=== PATIENT | female | born 1995 | race Caucasian/White ===

== ENCOUNTER 2016-10-14 10:26 | Outpatient (CLI) | payer OTHER | END 2016-10-14 11:59 | disposition home or self-care (01) | LOC: FBPOP 10:26 | PROVIDERS: ATTEND Obstetrics & Gynecology | DX: M54.5 Low back pain (principal); R10.2 Pelvic and perineal pain; O47.1 False labor at or after 37 completed weeks of gestation; Z3A.39 39 weeks gestation of pregnancy | CPT/HCPCS: 99213 ==

== ENCOUNTER 2016-10-14 19:38 | Outpatient (CLI) | payer OTHER | END 2016-10-14 20:54 | disposition home or self-care (01) | LOC: FBPOP 19:38 | PROVIDERS: ATTEND Obstetrics & Gynecology | DX: O62.2 Other uterine inertia (principal); Z3A.39 39 weeks gestation of pregnancy | CPT/HCPCS: 59025; G0463; 99213 ==

== ENCOUNTER 2016-10-15 09:14 | Inpatient (IN) | payer OTHER ==
[2016-10-15] MEDS ORDERED: CARBOPROST TROMETHAMINE 250 MCG/ML 1 ML AMP IM PRN (09:32)
[2016-10-15] MEDS ORDERED: OXYTOCIN 10 UNIT/ML 1 ML VIAL IM PRN (09:32)
[2016-10-15] MEDS ORDERED: TERBUTALINE 1 MG/ML VIAL SQ PRN (09:32)
[2016-10-15] MEDS ORDERED: METHYLERGONOVINE 0.2 MG/ML 1 ML AMP IM PRN (09:32)
[2016-10-15] MEDS ORDERED: LIDOCAINE 1% (PF) 10 MG/ML (30 ML SDV) SQ PRN (09:32)
[2016-10-15] MEDS ORDERED: OXYTOCIN 30 UNITS/500 ML NS 30 UNIT in SALINE 1 500ML.BAG IV SCH (09:45)
[2016-10-15] MEDS: LACTATED RINGERS 1,000 ML IV SCH ×2 (09:49→14:03)
[2016-10-15 09:54] LABS: Basophils % (A) 0 %; CH 29.4; CHCM 34.1; Eosinophils # (A) 0.1 k/uL (0-0.7); Eosinophils % (A) 1 %; HCT 37.4 % (34.0-46.0); HDW 2.82; HGB 12.1 gm/dL (11.4-16.0); Luc # (Auto) 0.08; Luc % (Auto) 1; Lymphocytes # (A) 2.2 k/uL (1.0-4.8); Lymphocytes % (A) 14 %; MCH 28.1 pg (25.0-35.0); MCHC 32.4 g/dL (31.0-37.0); MCV 86.8 fL (80.0-100.0); Mean Platelet Volume 9.8; Monocytes # (A) 0.4 k/uL (0-1.0); Monocytes % (A) 3 %; Neutrophils # (A) 12.9 k/uL (1.3-7.7); Neutrophils % (A) 83 %; RBC 4.31 m/uL (3.80-5.40); WBC 15.6 k/uL (3.8-10.6); WBC (Perox) 15.33
[2016-10-15] MEDS ORDERED: BUTORPHANOL 1 MG/ML 1 ML VIAL IV PRN (10:51)
[2016-10-15 11:00] VITALS: BMI 41.6
--- NOTE | 2016-10-15 12:27 | P.HPOB ---
History of Present Illness H&P Date: 10/15/16 Chief Complaint: Labor at 40-0/7 weeks This is a 21-year-old 1 para 0 woman with an estimated due date of 10/15 based on first trimester ultrasound who presents complaining of worsening contractions over the last 48 hours. She was seen on labor and delivery triage throughout the night and was 1 cm dilated. When she was reevaluated in the office setting this morning she was 3 cm and more effaced. Her blood pressure was 140/100. She was therefore admitted for early active labor and - induced hypertension. She did have preeclampsia labs and a 24-hour urine drawn 48 hours ago. Her labs were normal however the 24-hour urine protein is not yet available through the [facility] lab. She had trace protein on urine dip in the office today. She denies headaches or visual changes. The otherwise was complicated by maternal obesity. Laboratory data: Group B strep negative, blood type O positive, antibody screen negative, rubella immune, VDRL nonreactive, hepatitis B surface antigen negative , HIV negative, diabetes screening within normal limits. Estimated weight by ultrasound at 37 weeks was 59th percentile. Review of Systems All systems: negative Past Medical History Past Medical History: No Reported History History of Any Multi-Drug Resistant Organisms: None Reported Past Surgical History: No Surgical Hx Reported Past Anesthesia/Blood Transfusion Reactions: No Reported Reaction Past Psychological History: Anxiety Smoking Status: Never smoker Past Drug Use History: None Reported - Past Family History Mother Family Medical History: No Reported History Medications and Allergies Home Medications Medication Instructions Recorded Confirmed Type Pnv with Ca,No.72/Iron/FA 1 each PO DAILY 09/23/16 10/15/16 History [ Plus Tablet] Cephalexin [Keflex] 500 mg PO Q8HR 10/14/16 10/15/16 History Allergies Allergy/AdvReac Type Severity Reaction Status Date / Time No Known Allergies Allergy Verified 10/15/16 09:31 Exam - Vital Signs Vital signs: Vital Signs Temp Pulse Resp BP Pulse Ox 10/15/16 10:55 96.4 F L 85 16 130/84 98 Intake and Output 10/14/16 10/15/16 10/15/16 22:59 06:59 14:59 Other: Weight 106.594 kg Patient Weight 10/16/16 06:59 Weight 106.594 kg Targeted physical exam is performed. This is a morbidly obese and visibly gravid young female. There is no right upper quadrant pain. She has 1+ bilateral lower extremity edema. 1+ deep tendon reflexes and no clonus. On pelvic exam the cervix is 4 cm dilated 100% effaced with bulging membranes. Vertex -2 station. Artificial rupture of membranes is undertaken and clear fluid is noted. heart tones are reassuring by external monitoring and she is latrice every 1-2 minutes. Results Result Diagrams: 10/15/16 09:30 Abnormal Lab Results - Last 24 Hours (Table) 10/15/16 Range/Units 09:30 WBC 15.6 H (3.8-10.6) k/uL Neutrophils # 12.9 H (1.3-7.7) k/uL Assessment and Plan (1) 40 weeks gestation of Status: Acute (2) induced hypertension Status: Acute (3) Spontaneous onset of labor Status: Acute (4) Obesity Status: Acute Plan: This is a 21-year-old 1 para 0 woman admitted in spontaneous active labor at 40-0/7 weeks' gestation with regnancy-induced hypertension. No signs of preeclampsia. Blood pressures are stable on admission. status is reassuring by external monitoring. She is group B strep negative and Rh+ . She may have an epidural anesthetic upon request. Anticipate normal spontaneous vaginal delivery.
[2016-10-15] MEDS ORDERED: SODIUM CHLORIDE 0.9% 100 ML BAG ONE (13:45)
[2016-10-15] MEDS ORDERED: BUPIVACAINE (PF) 0.25% 30 ML VIAL ONE (13:45)
[2016-10-15] MEDS ORDERED: fentaNYL (PF) 50 MCG/ML 5 ML AMP ONE (13:45)
[2016-10-15] MEDS ORDERED: BUPIVACAINE (PF) 0.25% 25 ML, fentaNYL (PF) 200 MCG in SODIUM CHLORIDE 0.9% 71 ML EPIDURAL ONE (14:18)
[2016-10-15] MEDS ORDERED: ACETAMINOPHEN TAB 325 MG TAB PO PRN (19:55)
[2016-10-15] MEDS ORDERED: HYDROCORTISONE 2.5% RECTAL CREAM 30 GM TUBE RECTAL PRN (19:55)
[2016-10-15] MEDS ORDERED: ZOLPIDEM 5 MG TAB PO PRN (19:55)
[2016-10-15] MEDS ORDERED: diphenhydrAMINE 25 MG CAP PO PRN (19:55)
[2016-10-15] MEDS ORDERED: WITCH HAZEL 1 EACH MED..PAD TOPICAL PRN (19:55)
[2016-10-15] MEDS ORDERED: SIMETHICONE 80 MG CHEWABLE PO PRN (19:55)
[2016-10-15] MEDS ORDERED: LANOLIN CREAM 5 GM TUBE TOPICAL PRN (19:55)
[2016-10-15] MEDS ORDERED: Acetaminophen-Codeine 300-30mg TAB PO PRN (19:55)
[2016-10-15] MEDS ORDERED: diphenhydrAMINE 50 MG/ML 1 ML VIAL IVP PRN ×2 (19:55)
[2016-10-15] MEDS ORDERED: diphenhydrAMINE 50 MG CAP PO PRN (19:55)
[2016-10-15] MEDS ORDERED: BENZOCAINE/MENTHOL SPRAY 1 GM/SPRAY AEROSOL TOPICAL PRN (19:55)
--- NOTE | 2016-10-15 19:55 | P.PROBDLV ---
Vaginal Delivery Note - . Vaginal Delivery Note: This is a 21-year-old white female 1 para 0 EDC 10/15/2016 at 40 weeks gestation. Patient was admitted earlier this morning by Dr. Matos, in very early spontaneous labor. Blood pressure in the office with slightly elevated, 131/80 foreign admission and normotensive since admission. Blood type O+, group B strep cultures negative, rubella status immune. Please see dictated history and physical for details. Artificial amniorrhexis revealed clear fluid. Oxytocin was started and titrated per hospital protocol. Epidural was placed per her request. She became completely dilated and began the second stage of labor. Several episodes of variable type decelerations, excellent overall variability. Perineal body was ultimately prepped and draped in the usual sterile fashion. Infant's head delivered occiput anterior and he restituted accordingly. There was a nuchal cord 1 that was reduced on the perineal body. The oropharynx, nasopharynx and external nares were all bulb suctioned on the perineal body. The left or anterior shoulder was gently delivered from underneath the pubic symphysis. Patient was officially delivered of a liveborn male infant at 1929 hrs. The umbilical cord was doubly clamped and ligated, he was handed to waiting nurses for evaluation where scores of 9 and 9 at one and 5 minutes respectively were given. Placenta delivered spontaneously, it was inspected, noted to be intact with trivascular cord. Fundus was firm and in the midline, symmetric and 18 week size upon completion of delivery. The perineum was redraped, inspection of the cervix, vagina, perineum, periurethral, and perirectal areas revealed a small posterior vaginal vault laceration, second-degree, easily repaired using 3-0 Vicryl suture. Estimated blood loss 300 mL's. All sponge needle and enhancement counts are correct at the end of the procedure. Patient and her family are requesting circumcision further infant son.
[2016-10-15] MEDS: SENNOSIDES-DOCUSATE SODIUM 1 EACH TAB PO SCH (20:02)
[2016-10-15] MEDS: IBUPROFEN 600 MG TAB PO PRN (20:02)
[2016-10-15] MEDS: OXYTOCIN 30 UNITS/500 ML NS 30 UNIT in SALINE 1 500ML.BAG IV SCH (20:34)
[2016-10-16] MEDS: LACTATED RINGERS 1,000 ML IV SCH (02:15)
[2016-10-16] MEDS: OXYTOCIN 30 UNITS/500 ML NS 30 UNIT in SALINE 1 500ML.BAG IV SCH (02:15)
--- NOTE | 2016-10-16 08:37 | P.PN ---
Subjective Principal diagnosis: day #1 Slept well. Minimal lochia rubra. Pain well-controlled. Positive flatus. Objective - Vital Signs Vital signs: Vital Signs Temp 98.5 F 10/16/16 04:00 Pulse 97 10/16/16 04:00 Resp 16 10/16/16 04:00 BP 108/68 10/16/16 04:00 Pulse Ox 98 10/15/16 10:55 Intake & Output 10/15/16 10/16/16 10/16/16 18:59 06:59 18:59 Weight 106.594 kg Other: # Voids 1 1 - Constitutional General appearance: Present: average body habitus - EENT Eyes: Present: PERRLA - Neck Neck: Present: normal ROM Thyroid: bilateral: normal size - Respiratory Respiratory: bilateral: CTA - Cardiovascular Rhythm: regular - Gastrointestinal General gastrointestinal: Present: normal bowel sounds - Genitourinary Genitourinary Comment(s): Fundus firm, midline, symmetric, 18 week size. Minimal lochia rubra. - Integumentary Integumentary: Present: normal - Neurologic Neurologic: Present: CNII-XII intact - Musculoskeletal Musculoskeletal: Present: gait normal, strength equal bilaterally - Psychiatric Psychiatric: Present: A&O x's 3, appropriate affect, intact judgment & insight - Labs CBC & Chem 7: 10/15/16 09:30 Labs: Abnormal Lab Results - Last 24 Hours (Table) 10/15/16 Range/Units 09:30 WBC 15.6 H (3.8-10.6) k/uL Neutrophils # 12.9 H (1.3-7.7) k/uL Assessment and Plan Plan: Continue care. Likely discharge home tomorrow. Time with Patient: Less than 30
[2016-10-16] MEDS: SENNOSIDES-DOCUSATE SODIUM 1 EACH TAB PO SCH ×2 (14:21→15:47)
[2016-10-16] MEDS: IBUPROFEN 600 MG TAB PO PRN (21:23)
[2016-10-17 08:19] VITALS: BP 136/83; PULSE 76; RESP 18; TEMP 98.3
--- NOTE | 2016-10-17 08:27 | P.DS ---
Providers Date of admission: 10/15/16 09:14 Expected date of discharge: 10/17/16 Attending physician: Carol Matos Primary care physician: Carol Matos - Discharge Diagnosis(es) (1) 40 weeks gestation of Current Visit: Yes Status: Acute (2) induced hypertension Current Visit: Yes Status: Acute (3) Spontaneous onset of labor Current Visit: Yes Status: Acute (4) Obesity Current Visit: Yes Status: Acute (5) Normal spontaneous vaginal delivery Current Visit: Yes Status: Acute Hospital Course: This is a 21-year-old 1 now para 1 woman who is admitted at 40 weeks gestation in early labor. She had -induced hypertension. Following admission she underwent artificial rupture of membranes and Pitocin augmentation of labor. She received an epidural anesthetic. She went on to deliver a liveborn male infant with Apgars of 9 at 1 minute and 9 at 5 minutes. Please see the delivery summary for details. The patient's post course was unremarkable. Her blood pressures remained stable in the 130s over 80s throughout. She did have significant lower extremity edema however no other localizing signs or symptoms. By day #2 she was doing very well with minimal lochia minimal pain and no other complications. She was therefore discharged home with routine instructions for care and follow-up. Patient Condition at Discharge: Good Plan - Discharge Summary Discharge Medication List Pnv with Ca,No.72/Iron/FA [ Plus Tablet] 1 each PO DAILY 09/23/16 [ History] Cephalexin [Keflex] 500 mg PO Q8HR 10/14/16 [History]
== END 2016-10-17 14:15 | disposition home or self-care (01) | DRG 775 ==
LOC: 4FBP 09:14
PROVIDERS: ADMIT Obstetrics & Gynecology; ATTEND Obstetrics & Gynecology
PROC: 0KQM0ZZ Repair Perineum Muscle, Open Approach (ICD-10-PCS; principal; 2016-10-15)
PROC: 10907ZC Drainage of Amniotic Fluid, Therapeutic from Products of Conception, Via Natural or Artificial Opening (ICD-10-PCS; principal; 2016-10-15)
PROC: 10E0XZZ Delivery of Products of Conception, External Approach (ICD-10-PCS; principal; 2016-10-15)
DX: O13.4 Gestational [pregnancy-induced] hypertension without significant proteinuria, complicating childbirth (principal); E66.9 Obesity, unspecified; Z37.0 Single live birth; O99.214 Obesity complicating childbirth; O69.81X0 Labor and delivery complicated by cord around neck, without compression, not applicable or unspecified; Z3A.40 40 weeks gestation of pregnancy; O70.1 Second degree perineal laceration during delivery
CPT/HCPCS: 85025; 88307

== ENCOUNTER → 2017-12-20 | Outpatient (CLI) | payer OTHER ==
--- NOTE | 2017-12-20 13:01 | MR ---
EXAMINATION TYPE: MR tspine/lspine wo con DATE OF EXAM: 12/20/2017 COMPARISON: NONE HISTORY: Back pain TECHNIQUE: Multiplanar, multisequence imaging of the thoracic and lumbar spine were performed without IV contrast. FINDINGS: THORACIC SPINE: Thoracic vertebral body heights and alignment to appear satisfactory. Disc desiccatio n is seen at T9-T10, T11-T12, and T12-L1. The remaining intervertebral discs demonstrate normal heigh ts and hydration. The conus medullaris is normal in position and signal located at T12-L1. The bone marrow signal intensity is within normal limits other than a small T1/T2 hyperintense vertebral body hemangioma of T8. No suspicious extra dural fluid collection is seen. There is a subligamentous central small disc herniation at T11-T12 superimposed upon a broad-based di sc bulge resulting in very mild bilateral neural foraminal narrowing and mild spinal canal stenosis. The remaining thoracic vertebral levels demonstrate no focal disc herniation, neural foraminal narrow ing or spinal canal stenosis. Questionable 7 mm T2 hyperintense hepatic dome lesion within the right lobe of the liver is seen on a single image only on T2 axial nonfat sat series 601 image 18. This co uld be further evaluated with ultrasound. LUMBAR SPINE: The lumbar spine maintains normal vertebral body height and alignment. Bone marrow sign al is within normal limits other than small sacral intervertebral hemangiomas. Disc desiccation is se en at T12-L1, mildly at L1-L2 with a small Schmorl's node of the superior endplate of L1, and mildly at L4-L5 and L5-S1. Conus medullaris is unremarkable terminating at T12-L1. Artifact is seen within t he right kidney, hyperintense on T1 and T2-weighted images. L1-L2: Mild disc desiccation with a small superior L1 endplate Schmorl's node. No focal disc herniati on, neural foraminal stenosis or spinal canal stenosis. L2-L4: No significant disc disease, spinal canal stenosis or neural foraminal narrowing. L4-L5: Very small broad-based disc bulge is seen as flattening of the usual disc concavity posteriorl y. No significant spinal canal stenosis or neural foraminal narrowing. L5-S1: Very small central disc protrusion/herniation as seen on axial T1 and T2 nonfat sat image 3. T here is no significant spinal canal stenosis or neural foraminal narrowing. IMPRESSION: 1. Subligamentous small disc herniation at T11-T12 creating very mild bilateral neural foraminal narr owing and mild spinal canal stenosis. 2. Very small central disc herniation at L5-S1 without significant spinal canal stenosis or neural fo raminal narrowing. 3. Questionable 7 mm T2 hyperintense right hepatic lobe lesion near the dome of the diaphragm seen on a single image only that could be further evaluated with ultrasound. 4. No evidence of malalignment, bone marrow edema, or acute fracture of the thoracic or lumbar spine.
== END ==
LOC: RADMRIMAIN 11:38
PROVIDERS: ATTEND Pediatrics
DX: M48.04 Spinal stenosis, thoracic region (principal); M99.72 Connective tissue and disc stenosis of intervertebral foramina of thoracic region; M51.24 Other intervertebral disc displacement, thoracic region; M51.27 Other intervertebral disc displacement, lumbosacral region
CPT/HCPCS: 72146; 72148

== ENCOUNTER → 2019-07-23 | Outpatient (CLI) | payer OTHER ==
[2019-07-23 15:26] LABS: Basophils # (A) 0.1 k/uL (0-0.2); Basophils % (A) 1 %; Eosinophils # (A) 0.1 k/uL (0-0.7); Eosinophils % (A) 1 %; HCT 38.7 % (34.0-46.0); HGB 12.6 gm/dL (11.4-16.0); Lymphocytes # (A) 3.3 k/uL (1.0-4.8); Lymphocytes % (A) 32 %; MCHC 32.5 g/dL (31.0-37.0); MCV 89.4 fL (80.0-100.0); Monocytes # (A) 0.3 k/uL (0-1.0); Monocytes % (A) 3 %; Neutrophils # (A) 6.7 k/uL (1.3-7.7); Neutrophils % (A) 63 %; Platelet Count 292 k/uL (150-450); RBC 4.33 m/uL (3.80-5.40); RDW 13.2 % (11.5-15.5); WBC 10.6 k/uL (3.8-10.6)
== END | disposition home or self-care (01) ==
LOC: LABPAT 14:01
PROVIDERS: ATTEND Obstetrics & Gynecology
DX: Z01.812 Encounter for preprocedural laboratory examination (principal); O03.9 Complete or unspecified spontaneous abortion without complication
CPT/HCPCS: 36415; 85025

== ENCOUNTER 2019-07-24 09:42 | Day surgery (SDC) | payer OTHER ==
[2019-07-23 11:50] VITALS: BMI 43.2
[~2019-07-24 09:42] MED LIST: DEXAMETHASONE SOD PHOSPHATE 10 MG/ML 1 ML VIAL IV ONE; HYDROmorphone 0.5 MG/0.5 ML SYRINGE IVP PRN; LACTATED RINGERS 1,000 ML IV SCH; LIDOCAINE 1% 20 ML VIAL (10MG/ML) FOR IV START INTRADERMA PRN; MIDAZOLAM 2 MG/2 ML VIAL IV PRN; ONDANSETRON 4 MG/2 ML VIAL IVP ONE; Pre Op ABX Message 1 EACH MISC MISCELLANE ONE; SCOPOLAMINE 1.5MG/72HR PATCH TRANSDERM ONE
[2019-07-24 10:05] VITALS: RESP 16
[2019-07-24] MEDS ORDERED: MIDAZOLAM 2 MG/2 ML VIAL ONE (11:15)
[2019-07-24] MEDS ORDERED: LIDOCAINE 1% INJ 10MG/ML (20 ML MDV) ONE (11:15)
[2019-07-24] MEDS ORDERED: PROPOFOL 10 MG/ML 20 ML VIAL IV ONE (11:15)
[2019-07-24] MEDS ORDERED: KETOROLAC 30 MG/ML 1 ML VIAL ONE (11:15)
[2019-07-24] MEDS ORDERED: fentaNYL (PF) 50 MCG/ML 2 ML AMP ONE (11:15)
[2019-07-24] MEDS ORDERED: METOCLOPRAMIDE 5 MG/ML 2 ML VIAL IVP PRN (11:41)
[2019-07-24] MEDS ORDERED: Acetaminophen-Codeine 300-30mg TAB PO PRN ×2 (11:41)
[2019-07-24] MEDS ORDERED: IBUPROFEN 600 MG TAB PO PRN (11:41)
[2019-07-24] MEDS ORDERED: KETOROLAC 30 MG/ML 1 ML VIAL IVP PRN (11:41)
[2019-07-24] MEDS ORDERED: SIMETHICONE 80 MG CHEWABLE PO PRN (11:41)
[2019-07-24] MEDS ORDERED: diphenhydrAMINE 50 MG/ML 1 ML VIAL IVP PRN (11:41)
[2019-07-24] MEDS ORDERED: ONDANSETRON 4 MG/2 ML VIAL IVP PRN (11:41)
[2019-07-24] MEDS ORDERED: LACTATED RINGERS 1,000 ML IV SCH (11:45)
--- NOTE | 2019-07-24 11:46 | P.OP ---
Date of Procedure: 07/24/19 Preoperative Diagnosis: #1. 9+ week missed Postoperative Diagnosis: Same Procedure(s) Performed: #1. Dilation and aspiration curettage Anesthesia: other (Gen. by facemask) Surgeon: Robin Blair Estimated Blood Loss (ml): 150 IV fluids (ml): 400 Urine output (ml): 60 Pathology: other (Intrauterine contents) Condition: stable Disposition: PACU Operative Findings: Preoperative pelvic examination demonstrated a roughly 9 week midplane to slightly retroverted normal shaped uterus with normal adnexa bilaterally. Intraoperatively, the uterus sounded to approximately 11 cm. A #9 curved aspiration curet was utilized and tissue was clearly seen passing through the tubing on the first 2 passes. The typical gritty texture was encountered throughout with a sharp curette at the end. Description of Procedure: The patient was prepped and draped in usual fashion after general anesthesia was administered by the anesthesiologist. A weighted speculum was placed and the bladder drained of approximately 60 mL of clear michela urine. The anterior lip of the cervix was grasped with a single-tooth tenaculum and uterus was sounded to approximately 11 cm. Serial dilation was carried out to admit a #9 curved aspiration curet which was placed to the fundus and suction applied. After adequate suction had been built, thorough and circumferential suction curettage was carried out from the fundus to the cervix with tissue clearly seen passing through the tubing a second pass was made at which time tissue was again seen passing through the tubing. On the third pass, no further tissue was noted. The aspiration curet was replaced with a medium sharp curette which was once again used to thoroughly and circumferentially curet the entire endometrial cavity with no further tissue noted by sharp curettage. One last pass was made with the aspiration curet in the procedure abandoned. All instrumentation was removed. There is no significant ongoing bleeding either from the cervix or from the tenaculum site. Estimated blood loss for the entire case was approximately 150 mL. There were no complications. All sponge, instrument, and needle counts were correct. The patient tolerated the procedure well and proceeded to the recovery room in stable condition.
[2019-07-24 11:55] VITALS: TEMP 97.8
[2019-07-24] MEDS ORDERED: LACTATED RINGERS 1,000 ML IV ONE (12:22)
[2019-07-24 13:28] VITALS: BP 106/66; PULSE 79
== END 2019-07-24 13:57 | disposition home or self-care (01) ==
LOC: OR 09:42 → MERGE 11:00 → OR 13:57
PROVIDERS: ATTEND Obstetrics & Gynecology
DX: O02.1 Missed abortion (principal); F41.9 Anxiety disorder, unspecified; F32.9 Major depressive disorder, single episode, unspecified; K58.9 Irritable bowel syndrome, unspecified; G43.909 Migraine, unspecified, not intractable, without status migrainosus; E66.9 Obesity, unspecified; Z98.890 Other specified postprocedural states; Z79.899 Other long term (current) drug therapy
CPT/HCPCS: 88305; 59820; J2250; J1100; J2405; J2001; J3010; J1885; J2704; 86850; 86900; 86901

== ENCOUNTER 2019-07-30 01:44 | Emergency (ER) | payer OTHER ==
[2019-07-30 02:03] VITALS: RESP 18
[2019-07-30] MEDS ORDERED: SODIUM CHLORIDE 0.9% 1,000 ML IV STA (02:12)
[2019-07-30 02:39] LABS: Basophils % (A) 0 %; Eosinophils # (A) 0.2 k/uL (0-0.7); Eosinophils % (A) 2 %; HCT 36.2 % (34.0-46.0); HGB 12.3 gm/dL (11.4-16.0); Lymphocytes # (A) 4.1 k/uL (1.0-4.8); Lymphocytes % (A) 37 %; MCH 29.9 pg (25.0-35.0); MCV 87.9 fL (80.0-100.0); Mean Platelet Volume 6.1; Monocytes # (A) 0.4 k/uL (0-1.0); Monocytes % (A) 4 %; Neutrophils # (A) 6.1 k/uL (1.3-7.7); Neutrophils % (A) 55 %; Platelet Count 307 k/uL (150-450); RBC 4.12 m/uL (3.80-5.40)
--- NOTE | 2019-07-30 02:41 | ED ---
General Adult HPI - General Chief complaint: Vaginal Bleeding Stated complaint: Vaginal Bleeding, Abdominal Pain Time Seen by Provider: 07/30/19 01:56 Source: patient, RN notes reviewed Mode of arrival: ambulatory Limitations: no limitations - History of Present Illness Initial comments: 23-year-old female with a past medical history of IBS, migraines presents to the emergency department for a chief complaint of vaginal bleeding. Patient is a female. Patient was about 11 weeks when she miscarried. Patient had a D&C performed 6 days ago for missed . Patient states that since that time she has had vaginal bleeding. States it has been worsening and now she is passing clots. States she is also having sharp lower abdominal pain that is intermittent in nature and comes and goes. States that tonight patient passed a clot that was the size of an egg and became concerned.Patient has no other complaints at this time including shortness of breath, chest pain, nausea or vomiting, headache, or visual changes. - Related Data Home Medications Medication Instructions Recorded Confirmed Acetaminophen Tab [Tylenol Tab] 650 mg PO Q6H PRN 07/23/19 07/24/19 Pnv No.95/Ferrous Fum/Folic AC 1 each PO DAILY 07/23/19 07/24/19 [ Multivitamin Tablet] Sertraline [Zoloft] 50 mg PO HS 07/23/19 07/24/19 Allergies Allergy/AdvReac Type Severity Reaction Status Date / Time No Known Allergies Allergy Verified 07/30/19 02:03 Review of Systems ROS Statement: Those systems with pertinent positive or pertinent negative responses have been documented in the HPI. ROS Other: All systems not noted in ROS Statement are negative. Past Medical History Past Medical History: No Reported History Additional Past Medical History / Comment(s): PAST HX OF IBS AND MIGRAINES., LMP MAY 02 2019- STATES MISCARRIAGE-DENIES PAIN OR SPOTTING. History of Any Multi-Drug Resistant Organisms: None Reported Past Surgical History: No Surgical Hx Reported Additional Past Surgical History / Comment(s): COLONOSCOPY (2014) Past Anesthesia/Blood Transfusion Reactions: No Reported Reaction, Motion Sickness Past Psychological History: Anxiety, Depression Smoking Status: Never smoker Past Alcohol Use History: None Reported Past Drug Use History: None Reported - Past Family History Mother Family Medical History: No Reported History General Exam Limitations: no limitations General appearance: alert, in no apparent distress Head exam: Present: atraumatic, normocephalic, normal inspection Eye exam: Present: normal appearance, PERRL, EOMI. Absent: scleral icterus, conjunctival injection, periorbital swelling ENT exam: Present: normal exam Neck exam: Present: normal inspection, full ROM. Absent: tenderness, men ingismus, lymphadenopathy Respiratory exam: Present: normal lung sounds bilaterally. Absent: respiratory distress, wheezes, rales, rhonchi, stridor Cardiovascular Exam: Present: regular rate, normal rhythm, normal heart sounds. Absent: systolic murmur, diastolic murmur, rubs, gallop, clicks GI/Abdominal exam: Present: soft, tenderness (Mild tenderness noted in the lower abdomen.), normal bowel sounds. Absent: distended, guarding, rebound, rigid External exam: Present: normal external exam. Absent: erythema, swelling, lesions, lacerations, ecchymosis Speculum exam: Present: vaginal bleeding (mild ). Absent: normal speculum exam, erythema, vaginal discharge, cervical discharge, foreign body, tissue, laceration By manual exam: Present: uterine tenderness (mild). Absent: normal by manual exam, cervical motion tenderness, adnexal tenderness, adnexal mass, uterine enlargement Course Vital Signs 07/30/19 07/30/19 02:00 03:12 Temperature 97.9 F Pulse Rate 96 80 Respiratory 18 18 Rate Blood Pressure 130/87 122/76 O2 Sat by Pulse 98 98 Oximetry Medical Decision Making - Medical Decision Making Vitals are stable. Pelvic exam revealed mild bleeding. CBC is unremarkable. Mild leukocytosis of 11 is likely reactive. Hemoglobin is stable at 12.3. CMP is unremarkable. Urinalysis shows greater than 182 red blood cells which is likely secondary to vaginal bleeding rather than hematuria. Ultrasound was obtained which was a small left ovarian cyst. No evidence of ovarian torsion. Normal uterus. At this time as vitals are stable, hemoglobin is stable patient can follow up outpatient with her [facility]. Recommended she call tomorrow morning. Recommended she return here she has any worsening symptoms. - Lab Data Result diagrams: 07/30/19 02:30 07/30/19 02:30 Lab Results 07/30/19 07/30/19 07/30/19 Range/Units 02:30 02:30 02:30 WBC 11.0 H (3.8-10.6) k/uL RBC 4.12 (3.80-5.40) m/uL Hgb 12.3 (11.4-16.0) gm/dL Hct 36.2 (34.0-46.0) % MCV 87.9 (80.0-100.0) fL MCH 29.9 (25.0-35.0) pg MCHC 34.0 (31.0-37.0) g/dL RDW 13.0 (11.5-15.5) % Plt Count 307 (150-450) k/uL Neutrophils % 55 % Lymphocytes % 37 % Monocytes % 4 % Eosinophils % 2 % Basophils % 0 % Neutrophils # 6.1 (1.3-7.7) k/uL Lymphocytes # 4.1 (1.0-4.8) k/uL Monocytes # 0.4 (0-1.0) k/uL Eosinophils # 0.2 (0-0.7) k/uL Basophils # 0.0 (0-0.2) k/uL Sodium 138 (137-145) mmol/L Potassium 4.0 (3.5-5.1) mmol/L Chloride 104 (98-107) mmol/L Carbon Dioxide 25 (22-30) mmol/L Anion Gap 9 mmol/L BUN 16 (7-17) mg/dL Creatinine 0.75 (0.52-1.04) mg/dL Est GFR (CKD-EPI)AfAm >90 (>60 ml/min/1.73 sqM) Est GFR (CKD-EPI)NonAf >90 (>60 ml/min/1.73 sqM) Glucose 100 H (74-99) mg/dL Calcium 10.0 (8.4-10.2) mg/dL Total Bilirubin 0.3 (0.2-1.3) mg/dL AST 19 (14-36) U/L ALT 21 (9-52) U/L Alkaline Phosphatase 104 (38-126) U/L Total Protein 7.6 (6.3-8.2) g/dL Albumin 4.3 (3.5-5.0) g/dL Urine Color Yellow Urine Appearance Cloudy H (Clear) Urine pH 5.5 (5.0-8.0) Ur Specific Ruffin 1.028 (1.001-1.035) Urine Protein 1+ H (Negative) Urine Glucose (UA) Negative (Negative) Urine Ketones Negative (Negative) Urine Blood Large H (Negative) Urine Nitrite Negative (Negative) Urine Bilirubin Negative (Negative) Urine Urobilinogen <2.0 (<2.0) mg/dL Ur Leukocyte Esterase Small H (Negative) Urine RBC >182 H (0-5) /hpf Urine WBC 14 H (0-5) /hpf Ur Squamous Epith Cells 3 (0-4) /hpf Urine Mucus Rare H (None) /hpf Disposition Clinical Impression: Dysfunctional uterine bleeding, Ovarian cyst Disposition: HOME SELF-CARE Condition: Good Instructions (If sedation given, give patient instructions): Dysfunctional Uterine Bleeding (ED), Ovarian Cyst (ED) Additional Instructions: Please follow up with [facility] tomorrow. Please return here to the emergency department if you are having any worsening symptoms. Is patient prescribed a controlled substance at d/c from ED?: No Referrals: Ronaldo Andrea MD [Primary Care Provider] - 1-2 days Robin Blair MD [STAFF PHYSICIAN] - 1-2 days Time of Disposition: 04:09
[2019-07-30 02:56] LABS: Appearance,Urine Cloudy (Clear); Bilirubin,Urine Negative (Negative); Blood,Urine Large (Negative); Color,Urine Yellow; Glucose,Urine (UA) Negative (Negative); Ketones,Urine Negative (Negative); Leukocyte Esterase,Urine Small (Negative); Mucus,Urine Rare /hpf; Nitrite,Urine Negative (Negative); PH, Urine 5.5 (5.0-8.0); Protein,Urine 1+ (Negative); RBC,Urine >182 /hpf (0-5); Specific Gravity,Urine 1.028 (1.001-1.035); Squamous Epithelial Cell,Urine 3 /hpf (0-4); Urobilinogen,Urine <2.0 mg/dL (<2.0); WBC,Urine 14 /hpf (0-5)
[2019-07-30 03:08] LABS: ALT 21 U/L (9-52); AST 19 U/L (14-36); African American GFR (CKD) >90 (>60 ml/min/1.73 sqM); Albumin 4.3 g/dL (3.5-5.0); Alkaline Phosphatase 104 U/L (38-126); Anion Gap 9 mmol/L; Blood Urea Nitrogen 16 mg/dL (7-17); Carbon Dioxide 25 mmol/L (22-30); Chloride 104 mmol/L (98-107); Glucose 100 mg/dL (74-99); Sodium 138 mmol/L (137-145); Total Bilirubin 0.3 mg/dL (0.2-1.3); Total Protein 7.6 g/dL (6.3-8.2)
--- NOTE | 2019-07-30 04:05 | US ---
EXAMINATION TYPE: US transvaginal DATE OF EXAM: 07/30/2019 COMPARISON: NONE CLINICAL HISTORY: D C jul 24, passing clots, abd pain. Pelvic pain x 2 days. D & C July 24, 2019. Passing clots. . TECHNIQUE: Transvaginal (TV). Date of LMP: 05/02/2019 EXAM MEASUREMENTS: Uterus: 10.0 x 6.2 x 4.9 cm Endometrial Stripe: 0.64 cm Right Ovary: 3.3 x 1.8 x 1.9 cm Left Ovary: 3.5 x 1.8 x 1.8 cm 1. Uterus: Anteverted. Appears to measure upper limits of normal. 2. Endometrium: Measures 0.64 cm. 3. Right Ovary: appears posterior to the uterus. 4. Left Ovary: Hypoechoic area see measurin.0 x 1.0 x 1.1 cm. Spectral, color and waveform doppler imaging shows good arterial flow within the ovaries; limited v enous waveform visibility. Venous waveforms not definitely seen in ovaries. Possible limitation due t o depth. 5. Bilateral Adnexa: appears wnl 6. Posterior cul-de-sac: minimal hypoechoic fluid seen IMPRESSION: Small left ovarian cyst. No evidence of ovarian torsion. Normal uterus.
[2019-07-30 04:30] VITALS: BP 128/82; PULSE 77; TEMP 98
== END 2019-07-30 04:30 | disposition home or self-care (01) ==
LOC: EC 01:44
DX: N93.8 Other specified abnormal uterine and vaginal bleeding (principal); N83.202 Unspecified ovarian cyst, left side; D72.829 Elevated white blood cell count, unspecified; F41.9 Anxiety disorder, unspecified; F32.9 Major depressive disorder, single episode, unspecified; Z79.899 Other long term (current) drug therapy
CPT/HCPCS: 36415; 76830; 80053; 81001; 85025; 93975; 96360; 96361; 99284

== ENCOUNTER 2021-10-24 13:51 | Emergency (ER) | payer OTHER ==
[2021-10-24 14:05] VITALS: BP 136/86; PULSE 98; RESP 18; TEMP 98.2
--- NOTE | 2021-10-24 15:15 | ED ---
General Adult HPI - General Chief complaint: Vaginal Bleeding Stated complaint: cramping/bleeding Time Seen by Provider: 10/24/21 14:43 Source: patient, RN notes reviewed Mode of arrival: ambulatory Limitations: no limitations - History of Present Illness Initial comments: 26-year-old female presents to the emergency department for evaluation of vaginal bleeding. Patient states she had mild lower abdominal cramping earlier today while at work then noticed some pink vaginal discharge. Patient states her last normal menstrual period was 08/27/2021, however did have 2 days of spotting in September. States she had a positive home test last week. Patient states abdominal discomfort resolved prior to arrival. Denies fever, chills, headache, chest pain, nausea, vomiting, diarrhea, dysuria, or hematuria. . - Related Data Home Medications Medication Instructions Recorded Confirmed Acetaminophen Tab [Tylenol Tab] 650 mg PO Q6H PRN 07/23/19 10/24/21 Pnv No.95/Ferrous Fum/Folic AC 1 tab PO DAILY 07/23/19 10/24/21 [ Multivitamin Tablet] Sertraline HCl [Zoloft] 100 mg PO DAILY 10/24/21 10/24/21 Allergies Allergy/AdvReac Type Severity Reaction Status Date / Time No Known Allergies Allergy Verified 10/24/21 17:59 Review of Systems ROS Statement: Those systems with pertinent positive or pertinent negative responses have been documented in the HPI. ROS Other: All systems not noted in ROS Statement are negative. Past Medical History Past Medical History: No Reported History Additional Past Medical History / Comment(s): PAST HX OF IBS AND MIGRAINES., LMP MAY 02 2019- STATES MISCARRIAGE-DENIES PAIN OR SPOTTING. History of Any Multi-Drug Resistant Organisms: None Reported Past Surgical History: No Surgical Hx Reported Additional Past Surgical History / Comment(s): COLONOSCOPY (2014) Past Anesthesia/Blood Transfusion Reactions: No Reported Reaction, Motion Sickness Past Psychological History: Anxiety, Depression Smoking Status: Never smoker Past Alcohol Use History: None Reported Past Drug Use History: None Reported - Past Family History Mother Family Medical History: No Reported History General Exam Limitations: no limitations (Well-developed, well-nourished female in no acute distress. Initial temperature 98.2, pulse 98, respirations 18, blood pressure 136/86, pulse ox 99% on room air.) General appearance: alert, in no apparent distress Respiratory exam: Present: normal lung sounds bilaterally. Absent: respiratory distress, wheezes, rales, rhonchi, stridor Cardiovascular Exam: Present: regular rate, normal rhythm, normal heart sounds. Absent: systolic murmur, diastolic murmur, rubs, gallop, clicks GI/Abdominal exam: Present: soft, normal bowel sounds. Absent: distended, tend erness, guarding, rebound, rigid External exam: Present: normal external exam Speculum exam: Present: vaginal bleeding (small amount of red blood in vaginal vault; cervical os appears closed) Neurological exam: Present: alert, oriented X3, CN II-XII intact Psychiatric exam: Present: normal affect, normal mood Skin exam: Present: warm, dry, intact, normal color. Absent: rash Course Vital Signs 10/24/21 14:00 Temperature 98.2 F Pulse Rate 98 Respiratory 18 Rate Blood Pressure 136/86 O2 Sat by Pulse 99 Oximetry - Reevaluation(s) Reevaluation #1: 10/24/211919 Spoke with Dr. Matos regarding physical exam and work-up findings. She is provided with script for repeat HCG and will follow up in the office for further evaluation and treatment. Medical Decision Making - Medical Decision Making 26-year-old female, , presents to the emergency department for evaluation of vaginal bleeding. LMP 08/27/2021, with 2 days of spotting on 09/19/2021. Upon exam, patient is well-appearing and in no acute distress. Vital signs are stable. Physical exam findings are negative with the exception of small amount of light red vaginal bleeding upon speculum exam. Abdomen is soft and nontender. Laboratory studies were obtained showing blood in the urine, positive test, and an elevated hCG of 30.4. Ultrasound was obtained showing no intrauterine . Spoke with OB regarding physical exam findings and diagnostics. Discussed inability to rule out ectopic on ultrasound, though OB reassures that this is not concerning and she will see patient in the office for follow up. Patient was given a prescription to have a repeat hCG done and instructed to call OB in the morning to schedule follow-up appointment. Was informed that this is likely a miscarriage and that she may take Motrin if needed for discomfort. Return parameters were discussed in detail. Patient and spouse verbalized understanding and agreement with this plan. This patient's care was discussed with my attending . - Lab Data Result diagrams: 10/24/21 15:24 10/24/21 15:24 Lab Results 10/24/21 10/24/21 10/24/21 Range/Units 15:21 15:24 15:24 WBC 12.0 H (3.8-10.6) k/uL RBC 4.72 (3.80-5.40) m/uL Hgb 14.1 (11.4-16.0) gm/dL Hct 42.3 (34.0-46.0) % MCV 89.6 (80.0-100.0) fL MCH 29.8 (25.0-35.0) pg MCHC 33.3 (31.0-37.0) g/dL RDW 13.9 (11.5-15.5) % Plt Count 370 (150-450) k/uL MPV 7.3 Neutrophils % 64 % Lymphocytes % 30 % Monocytes % 3 % Eosinophils % 1 % Basophils % 0 % Neutrophils # 7.7 (1.3-7.7) k/uL Lymphocytes # 3.7 (1.0-4.8) k/uL Monocytes # 0.4 (0-1.0) k/uL Eosinophils # 0.1 (0-0.7) k/uL Basophils # 0.1 (0-0.2) k/uL Sodium (137-145) mmol/L Potassium (3.5-5.1) mmol/L Chloride (98-107) mmol/L Carbon Dioxide (22-30) mmol/L Anion Gap mmol/L BUN (7-17) mg/dL Creatinine (0.52-1.04) mg/dL Est GFR (CKD-EPI)AfAm (>60 ml/min/1.73 sqM) Est GFR (CKD-EPI)NonAf (>60 ml/min/1.73 sqM) Glucose (74-99) mg/dL Calcium (8.4-10.2) mg/dL HCG, Quant mIU/mL Urine Color Yellow Urine Appearance Clear (Clear) Urine pH 6.0 (5.0-8.0) Ur Specific [place] 1.018 (1.001-1.035) Urine Protein Negative (Negative) Urine Glucose (UA) Negative (Negative) Urine Ketones Negative (Negative) Urine Blood Large H (Negative) Urine Nitrite Negative (Negative) Urine Bilirubin Negative (Negative) Urine Urobilinogen <2.0 (<2.0) mg/dL Ur Leukocyte Esterase Small H (Negative) Urine RBC >182 H (0-5) /hpf Urine WBC 9 H (0-5) /hpf Ur Squamous Epith Cells <1 (0-4) /hpf Urine Bacteria Occasional H (None) /hpf Urine Mucus Rare H (None) /hpf Urine HCG, Qual (Not Detectd) Blood Type O Positive Blood Type Recheck O Pos Bld Type Recheck Status No 10/24/21 10/24/21 Range/Units 15:24 15:24 WBC (3.8-10.6) k/uL RBC (3.80-5.40) m/uL Hgb (11.4-16.0) gm/dL Hct (34.0-46.0) % MCV (80.0-100.0) fL MCH (25.0-35.0) pg MCHC (31.0-37.0) g/dL RDW (11.5-15.5) % Plt Count (150-450) k/uL MPV Neutrophils % % Lymphocytes % % Monocytes % % Eosinophils % % Basophils % % Neutrophils # (1.3-7.7) k/uL Lymphocytes # (1.0-4.8) k/uL Monocytes # (0-1.0) k/uL Eosinophils # (0-0.7) k/uL Basophils # (0-0.2) k/uL Sodium 140 (137-145) mmol/L Potassium 4.1 (3.5-5.1) mmol/L Chloride 103 (98-107) mmol/L Carbon Dioxide 26 (22-30) mmol/L Anion Gap 11 mmol/L BUN 14 (7-17) mg/dL Creatinine 0.61 (0.52-1.04) mg/dL Est GFR (CKD-EPI)AfAm >90 (>60 ml/min/1.73 sqM) Est GFR (CKD-EPI)NonAf >90 (>60 ml/min/1.73 sqM) Glucose 87 (74-99) mg/dL Calcium 9.4 (8.4-10.2) mg/dL HCG, Quant 30.4 mIU/mL Urine Color Urine Appearance (Clear) Urine pH (5.0-8.0) Ur Specific [place] (1.001-1.035) Urine Protein (Negative) Urine Glucose (UA) (Negative) Urine Ketones (Negative) Urine Blood (Negative) Urine Nitrite (Negative) Urine Bilirubin (Negative) Urine Urobilinogen (<2.0) mg/dL Ur Leukocyte Esterase (Negative) Urine RBC (0-5) /hpf Urine WBC (0-5) /hpf Ur Squamous Epith Cells (0-4) /hpf Urine Bacteria (None) /hpf Urine Mucus (None) /hpf Urine HCG, Qual Detected (Not Detectd) Blood Type Blood Type Recheck Bld Type Recheck Status - Radiology Data Radiology results: report reviewed, image reviewed Transvaginal and transabdominal ultrasound was obtained. Report was reviewed in its entirety. Impression per Dr. Morales is #1 no intrauterine seen at this time. #2 complex avascular area and the cervix measuring up to 1.8 cm and 0.7 cm of unknown clinical significance. #3 nonvisualized right ovary. #4 unremarkable left ovary, possibly left sided corpus luteum. Disposition Clinical Impression: Threatened miscarriage in early Disposition: HOME SELF-CARE Condition: Stable Instructions (If sedation given, give patient instructions): Threatened Miscarriage (ED) Additional Instructions: Please call your [facility] tomorrow to schedule follow up appointment. Have repeat blood work done in 48 hours (unless directed differently by your OB). May take motrin for cramping discomfort. Return to the emergency department with any new, worsening, or concerning symptoms. Is patient prescribed a controlled substance at d/c from ED?: No Referrals: Ronaldo Andrea MD [Primary Care Provider] - 1-2 days Time of Disposition: 19:28
[2021-10-24 15:46] LABS: Appearance,Urine Clear (Clear); Bacteria,Urine Occasional /hpf; Bilirubin,Urine Negative (Negative); Blood,Urine Large (Negative); Color,Urine Yellow; Glucose,Urine (UA) Negative (Negative); Ketones,Urine Negative (Negative); Leukocyte Esterase,Urine Small (Negative); Mucus,Urine Rare /hpf; Nitrite,Urine Negative (Negative); Protein,Urine Negative (Negative); RBC,Urine >182 /hpf (0-5); Specific Gravity,Urine 1.018 (1.001-1.035); Squamous Epithelial Cell,Urine <1 /hpf (0-4); Urobilinogen,Urine <2.0 mg/dL (<2.0); WBC,Urine 9 /hpf (0-5)
[2021-10-24 15:49] LABS: African American GFR (CKD) >90 (>60 ml/min/1.73 sqM); Anion Gap 11 mmol/L; Blood Urea Nitrogen 14 mg/dL (7-17); Calcium 9.4 mg/dL (8.4-10.2); Carbon Dioxide 26 mmol/L (22-30); Chloride 103 mmol/L (98-107); Glucose 87 mg/dL (74-99); Non-African American GFR(CKD) >90 (>60 ml/min/1.73 sqM); Potassium 4.1 mmol/L (3.5-5.1); Sodium 140 mmol/L (137-145)
[2021-10-24 16:01] LABS: HCG,Quantitative Serum 30.4 mIU/mL
[2021-10-24 16:13] LABS: Basophils # (A) 0.1 k/uL (0-0.2); Basophils % (A) 0 %; Eosinophils # (A) 0.1 k/uL (0-0.7); Eosinophils % (A) 1 %; HCT 42.3 % (34.0-46.0); HGB 14.1 gm/dL (11.4-16.0); Lymphocytes # (A) 3.7 k/uL (1.0-4.8); Lymphocytes % (A) 30 %; MCH 29.8 pg (25.0-35.0); MCHC 33.3 g/dL (31.0-37.0); MCV 89.6 fL (80.0-100.0); Mean Platelet Volume 7.3; Monocytes # (A) 0.4 k/uL (0-1.0); Monocytes % (A) 3 %; Neutrophils # (A) 7.7 k/uL (1.3-7.7); Neutrophils % (A) 64 %; Platelet Count 370 k/uL (150-450); RBC 4.72 m/uL (3.80-5.40); RDW 13.9 % (11.5-15.5)
[2021-10-24] MEDS ORDERED: ACETAMINOPHEN TAB 325 MG TAB PO STA (18:37)
--- NOTE | 2021-10-24 18:41 | US ---
EXAMINATION TYPE: Transabdominal DATE OF EXAM: 10/24/2021 6:01 PM COMPARISON: This is first for this , HX TV US CLINICAL HISTORY: vag bleeding, +preg, abd cramping. Vaginal bleeding, cramping. Hx miscarriage, D an d C. . EXAM PERFORMED: Transvaginal (TV) and Transabdominal (TA) COMPARISON: 07/30/2019 EXAM MEASUREMENTS: GESTATIONAL AGE / DATING Physician Established: Not yet established. Dates by LMP: ( 5 weeks/0 days) EDC: 06/26/2022 Dates by First Scan: This is first scan. Dates by Current Scan for: IUP not seen at this time. MATERNAL ANATOMY Uterus: 9.0 x 5.7 x 4.8 cm. Appears slightly heterogeneous. Endometrium measures 0.58 cm. Complex are a seen in cervix: 0.7 x 0.5 x 0.4 cm. Complex fluid-appearing area seen in cervix: 1.8 x 0.5 x 0.5 cm . Right Ovary: Not visualized. Left Ovary: 3.1 x 1.8 x 2.0 cm. Area of mixed echogenicity and peripheral vascularity seen: 2.0 x 1.7 x 1.7 cm. Anechoic area seen: 1.5 x 1.1 x 1.2 cm. Post CDS / Adnexa: No significant fluid seen in the cul-de-sac. No adnexal mass seen. Presence of corpus luteal cyst: Possible within left ovary, GESTATION / SURVEY IUP: No IUP seen at this time by ultrasound. Date of LMP: 09/19/2021 Beta HcG (if available): 30.4 mIU/mL IMPRESSION: 1. No intrauterine uterine seen at this time. The differential diagnoses would include chin y intrauterine , ectopic or miscarriage. 2. Complex avascular areas in the cervix measuring up to 1.8 cm and 0.7 cm of unknown clinical signif icance. The differential includes nabothian cysts, cystic changes within prior section scar (unknown prior history of section, correlation with history recommended), or gestational rel ated material/miscarriage. 3 nonvisualized right ovary. 4. Unremarkable left ovary, possible left-sided corpus luteum.
== END 2021-10-24 20:01 | disposition home or self-care (01) ==
LOC: EC 13:51
DX: O20.0 Threatened abortion (principal); F41.9 Anxiety disorder, unspecified; F32.A Depression, unspecified; Z3A.01 Less than 8 weeks gestation of pregnancy
CPT/HCPCS: 36415; 76801; 76817; 80048; 81001; 81025; 84702; 85025; 86900; 86901; 99284

== ENCOUNTER → 2021-10-26 | Outpatient (CLI) | payer OTHER | END | disposition home or self-care (01) | LOC: LABWHC1 11:47 | PROVIDERS: ATTEND Nurse Practitioner Family | DX: O20.0 Threatened abortion (principal); Z3A.00 Weeks of gestation of pregnancy not specified | CPT/HCPCS: 36415; 84702 ==

== ENCOUNTER 2022-08-07 17:00 | Inpatient (IN) | payer OTHER ==
[2022-08-07] MEDS: LACTATED RINGERS 1,000 ML IV SCH (18:17)
[2022-08-07 18:33] LABS: Basophils % (A) 0 %; Eosinophils # (A) 0.1 k/uL (0-0.7); Eosinophils % (A) 1 %; HGB 12.6 gm/dL (11.4-16.0); Lymphocytes # (A) 3.3 k/uL (1.0-4.8); Lymphocytes % (A) 27 %; MCHC 34.9 g/dL (31.0-37.0); MCV 88.9 fL (80.0-100.0); Mean Platelet Volume 9.9; Monocytes # (A) 0.4 k/uL (0-1.0); Monocytes % (A) 3 %; Neutrophils # (A) 8.2 k/uL (1.3-7.7); Neutrophils % (A) 68 %; Platelet Count 201 k/uL (150-450); RBC 4.05 m/uL (3.80-5.40); WBC 12.2 k/uL (3.8-10.6)
[2022-08-07] MEDS ORDERED: miSOPROStoL 25 MCG TAB VAGINAL SCH (19:00)
--- NOTE | 2022-08-07 19:48 | P.HPOB ---
History of Present Illness H&P Date: 08/07/22 Chief Complaint: Medical Induction of Labor Ms. Jaramillo is a 26 y/o at 36 weeks and 5 days presenting to L&D for medical IOL for IUGR 2%ile with elevated umbilical artery dopplers. She is feeling good movement, BPP earlier in the office today was 8/8. She is not having any contractions, leakage of fluid, or vaginal bleeding. She has had an otherwise uncomplicated . 1 hr GTT was within normal limits. The patient is HBsAg negative, RPR non-reactive, Rubella immune, Rh Positive. Obstetric History: 40 week , 7#8oz (2017) followed by 2 missed ABs. Gynecologic History: Unremarkable Past Medical History: Obesity, Depression, Anxiety, IBS, Migraines Medications: vitamins, Zoloft 100mg daily Surgical history: Colonoscopy, D&C Allergies: NKDA Family History: Non-contributory Social History: No smoking, drinking, or drug use. Review of Systems Constitutional: Denies as per HPI Past Medical History Past Medical History: No Reported History Additional Past Medical History / Comment(s): PAST HX OF IBS AND MIGRAINES., LMP MAY 02 2019- STATES MISCARRIAGE-DENIES PAIN OR SPOTTING. History of Any Multi-Drug Resistant Organisms: None Reported Past Surgical History: No Surgical Hx Reported Additional Past Surgical History / Comment(s): COLONOSCOPY (2014) Past Anesthesia/Blood Transfusion Reactions: No Reported Reaction, Motion Sick ness Past Psychological History: Anxiety, Depression Smoking Status: Never smoker Past Alcohol Use History: None Reported Past Drug Use History: None Reported - Past Family History Mother Family Medical History: No Reported History Medications and Allergies Home Medications Medication Instructions Recorded Confirmed Type Acetaminophen Tab [Tylenol Tab] 650 mg PO Q6H PRN 07/23/19 08/07/22 History Pnv No.95/Ferrous Fum/Folic AC 1 tab PO DAILY 07/23/19 08/07/22 History [ Multivitamin Tablet] Sertraline HCl [Zoloft] 100 mg PO DAILY 10/24/21 08/07/22 History Allergies Allergy/AdvReac Type Severity Reaction Status Date / Time No Known Allergies Allergy Verified 08/07/22 17:17 Exam Intake and Output 08/07/22 08/07/22 08/07/22 06:59 14:59 22:59 Other: Weight 107.955 kg Category I FHTs - OBG Physical Exam Cervix: closed, long, high. Results Result Diagrams: 08/07/22 18:20 Abnormal Lab Results - Last 24 Hours (Table) 08/07/22 Range/Units 18:20 WBC 12.2 H (3.8-10.6) k/uL Neutrophils # 8.2 H (1.3-7.7) k/uL Assessment and Plan Plan: 26 y/o at 36.5wga here for mIOL for IUGR 2%ile with elevated dopplers. - Cooks catheter placed at approximately 1930, 60 cc in each balloon - Pt to eat dinner and then will begin low-dose oxytocin, up by 1 per hour with a maximum dose of 6 overnight - Plan for cooks removal at 730 tomorrow morning and AROM if cervix is favorable and contraction pattern is good. Time with Patient: Greater than 30
[2022-08-07] MEDS: OXYTOCIN 30 UNITS/500 ML NS 30 UNIT in SALINE 1 500ML.BAG IV SCH (20:42)
[2022-08-07 22:06] LABS: INR 0.8 (<1.2); Partial Thromboplastin Time 26.1 sec (22.0-30.0); Prothrombin Time 9.5 sec (9.0-12.0)
[2022-08-07 22:08] LABS: ALT 16 U/L (4-34); AST 22 U/L (14-36); African American GFR (CKD) >90 (>60 ml/min/1.73 sqM); Blood Urea Nitrogen 10 mg/dL (7-17); LDH 332 U/L (313-618); Non-African American GFR(CKD) >90 (>60 ml/min/1.73 sqM); Uric Acid 5.8 mg/dL (3.7-7.4)
[2022-08-07 23:32] LABS: Creatinine,Urine Random 100.9 mg/dL; Protein/Creatinine Ratio,Urine 0.208
[2022-08-07] MEDS: BUTORPHANOL 1 MG/ML 1 ML VIAL IV PRN (23:46)
[2022-08-07 23:53] LABS: Appearance,Urine Clear (Clear); Bacteria,Urine Few /hpf; Bilirubin,Urine Negative (Negative); Blood,Urine Trace (Negative); Color,Urine Yellow; Glucose,Urine (UA) Negative (Negative); Ketones,Urine 1+ (Negative); Leukocyte Esterase,Urine Moderate (Negative); Mucus,Urine Rare /hpf; Nitrite,Urine Negative (Negative); PH, Urine 6.5 (5.0-8.0); Protein,Urine Trace (Negative); RBC,Urine <1 /hpf (0-5); Specific Gravity,Urine 1.015 (1.001-1.035); Squamous Epithelial Cell,Urine 1 /hpf (0-4); Urobilinogen,Urine <2.0 mg/dL (<2.0); WBC,Urine 1 /hpf (0-5)
[2022-08-08] MEDS: LACTATED RINGERS 1,000 ML IV SCH ×3 (00:29→19:57)
[2022-08-08] MEDS: BUTORPHANOL 1 MG/ML 1 ML VIAL IV PRN (03:52)
[2022-08-08] MEDS ORDERED: ROPIVACAINE 100 MG, fentaNYL (PF). 200 MCG in SODIUM CHLORIDE 0.9% 76 ML EPIDURAL ONE (07:16)
[2022-08-08] MEDS ORDERED: LABETALOL 5 MG/ML VIAL MDV IVP PRN ×2 (07:37)
[2022-08-08] MEDS ORDERED: hydrALAZINE HCL 20 MG/ML 1 ML VIAL IVP PRN ×2 (07:37)
[2022-08-08] MEDS ORDERED: MAGNESIUM SULFATE-WATER PMX 4 GM in WATER FOR INJECTION 1 100ML.BAG IVPB ONE (07:45)
[2022-08-08] MEDS: MAGNESIUM SULFATE-WATER PMX 20 GM in WATER FOR INJECTION 1 500ML.BAG IV SCH ×2 (08:09→18:16)
[2022-08-08] MEDS ORDERED: ONDANSETRON 4 MG/2 ML VIAL IVP STA (08:10)
[2022-08-08] MEDS ORDERED: SERTRALINE 100 MG TAB PO SCH ×2 (09:00)
[2022-08-08] MEDS ORDERED: PRENATAL VIT-IRON-FOLIC ACID 1 EACH TABLET PO SCH (09:00)
[2022-08-08] MEDS: OXYTOCIN 30 UNITS/500 ML NS 30 UNIT in SALINE 1 500ML.BAG IV SCH (09:31)
[2022-08-08] MEDS ORDERED: diphenhydrAMINE 50 MG CAP PO PRN (09:51)
[2022-08-08] MEDS ORDERED: BENZOCAINE/MENTHOL SPRAY 1 GM/SPRAY AEROSOL TOPICAL PRN (09:51)
[2022-08-08] MEDS ORDERED: LANOLIN CREAM 5 GM TUBE TOPICAL PRN (09:51)
[2022-08-08] MEDS ORDERED: diphenhydrAMINE 50 MG/ML 1 ML VIAL IVP PRN ×2 (09:51)
[2022-08-08] MEDS ORDERED: SIMETHICONE 80 MG CHEWABLE PO PRN (09:51)
[2022-08-08] MEDS ORDERED: ZOLPIDEM 5 MG TAB PO PRN (09:51)
[2022-08-08] MEDS ORDERED: HYDROCORTISONE 2.5% RECTAL CREAM 30 GM TUBE RECTAL PRN (09:51)
[2022-08-08] MEDS ORDERED: diphenhydrAMINE 25 MG CAP PO PRN (09:51)
--- NOTE | 2022-08-08 09:51 | P.PROBDLV ---
Vaginal Delivery Note - . Vaginal Delivery Note: DATE OF DELIVERY: 08/08/2022 This is a 26-year-old female, 4, para 1021, EDC 08/30/2022 at 36.6 weeks' gestation. Patient was being medically induced for IUGR 2%ile with elevated umbilical artery doppkers. Please see admitting H&P for details. P regnancy is remarkable for group B strep culture is negative. Blood type O+. One hour Glucola negative. Rubella status immune. Patient was admitted and cooks catheter balloon was placed with low-dose oxytocin yesterday evening. Overnight the patient had mild-range blood pressures and pre-eclampsia workup was performed. Labs were within normal limits and urine protein to creatinine ratio was 0.2. Cooks was removed and AROM was performed at 0602 with clear amniotic fluid noted. Shortly after, the patient developed persistently severe-range blood pressures 160s-190s systolic. Magnesium sulfate was started for seizure prophlyaxis and 10mg of IV hydralazine was given to the patient. Patient requested epidural, and this was placed without difficulty per anesthesia staff. Immediately after the epidural, the patient was in tachysytole and the fetus had a 6-7 minute deceleration down to the 80s with recovery back to 120s-130s with moderate variability once the pitocin was shut off, patient was repositioned, and fluids bolused. After this deceleration the FHTs were Catgory I until the second stage of labor. Patient became completely dilated at 0922 hours and began the second stage of labor at that time. She had a 4 minute deceleration to the 60s just prior to delivery of the infant head. She pushed the infant quite successfully in the occiput anterior position. The delivered occiput anterior, and restituted accordingly. The right shoulder was then easily delivered from underneath the pubic symphysis. The patient was officially delivered of a liveborn female infant at 0929 hours. Umbilical cord was doubly clamped and ligated. Infant was handed to waiting nurses for evaluation where scores of 3, 6, and 9 at one, five, and ten minutes respectively were given. The placenta delivered spontaneously. It was inspected and noted to be intact with trivascular cord at 0931 hours. Inspection of the cervix, vagina, perineum, periurethral and perirectal areas revealed no lace rations requiring repair. All sponge, needle, and instrument counts are correct at the end of this procedure. The patient will remain on Magnesium Sulfate for 24 hours . Serial blood pressures will be watched closely. The patient is in stable condition at this time.
[2022-08-08] MEDS: IBUPROFEN 600 MG TAB PO PRN ×2 (10:36→19:43)
[2022-08-08] MEDS: SERTRALINE 100 MG TAB PO SCH (19:43)
[2022-08-08] MEDS: PRENATAL VIT-IRON-FOLIC ACID 1 EACH TABLET PO SCH (19:43)
[2022-08-08] MEDS: SENNOSIDES-DOCUSATE SODIUM 1 EACH TAB PO SCH (20:50)
[2022-08-08] MEDS: ACETAMINOPHEN TAB 325 MG TAB PO PRN (23:05)
[2022-08-09] MEDS: IBUPROFEN 600 MG TAB PO PRN ×3 (03:00→21:46)
[2022-08-09] MEDS: LACTATED RINGERS 1,000 ML IV SCH ×2 (03:12→11:06)
[2022-08-09] MEDS: MAGNESIUM SULFATE-WATER PMX 20 GM in WATER FOR INJECTION 1 500ML.BAG IV SCH ×2 (03:59→15:47)
[2022-08-09 07:22] LABS: Basophils % (A) 0 %; Eosinophils # (A) 0.1 k/uL (0-0.7); Eosinophils % (A) 1 %; HGB 11.9 gm/dL (11.4-16.0); Lymphocytes # (A) 3.1 k/uL (1.0-4.8); Lymphocytes % (A) 23 %; MCH 30.3 pg (25.0-35.0); MCV 91.9 fL (80.0-100.0); Mean Platelet Volume 9.6; Monocytes # (A) 0.4 k/uL (0-1.0); Monocytes % (A) 3 %; Neutrophils % (A) 73 %; Platelet Count 185 k/uL (150-450); RBC 3.91 m/uL (3.80-5.40); RDW 14.2 % (11.5-15.5); WBC 13.7 k/uL (3.8-10.6)
[2022-08-09] MEDS: SENNOSIDES-DOCUSATE SODIUM 1 EACH TAB PO SCH ×2 (07:28→21:43)
[2022-08-09] MEDS: ACETAMINOPHEN TAB 325 MG TAB PO PRN (07:28)
--- NOTE | 2022-08-09 08:28 | P.PNOBGVD ---
Subjective - Subjective Principal diagnosis: Interval history: 26 y/o day #1 from [facility] for IUGR with elevated dopplers 1. Patient meeting all milestones. Eating, drinking, voiding, passing flatus appropriately. Minimal lochia, less than menses. Pain well controlled. 2. Preeclampsia with severe features - on Mag Sulfate until around 0900 this AM. VSS overnight with normotensive pressures without any antihypertensive pushes required. Denies CONTRERAS, visual disturbances, CP/SOB, RUQ pain. 3. PP contraception - pt not interested in hormonal contraception at this time. Counseled that an interpregnancy interval of 12-18 months is recommended in between deliveries to avoid complications such as delivery and low weight. 4. Viable female infant in nursery, doing well. Pt is formula-feeding. Dispo: Plan to keep patient another night to monitor BPs with anticipated discharge in the AM. Patient reports: Reports appetite normal, Reports voiding normally, Reports pain well controlled, Reports ambulating normally : doing well, bottle feeding Objective - Latest Vital Signs Latest vital signs: Vital Signs Temp Pulse Resp BP Pulse Ox 08/09/22 07:00 98.2 F 85 15 128/87 08/09/22 05:00 98.1 F 85 15 113/63 08/09/22 03:00 97.9 F 77 15 128/80 08/09/22 01:00 98.1 F 77 15 109/60 08/08/22 23:00 97.8 F 83 15 105/64 08/08/22 21:00 96.6 F L 89 15 115/67 08/08/22 19:05 89 16 146/81 08/08/22 18:51 97.2 F L 89 17 146/81 99 08/08/22 17:00 98 16 144/82 93 L 08/08/22 16:00 83 16 109/60 98 08/08/22 15:00 83 16 126/77 96 08/08/22 14:00 96 16 135/84 08/08/22 13:00 101 H 16 147/90 08/08/22 11:40 89 16 147/90 98 08/08/22 11:22 90 16 144/86 08/08/22 11:10 90 16 144/86 08/08/22 10:40 97 16 141/85 08/08/22 10:25 89 16 152/88 08/08/22 10:22 96.0 F L 90 16 152/88 08/08/22 10:10 90 16 154/89 08/08/22 09:55 91 16 155/89 08/08/22 09:40 97 16 149/85 08/08/22 08:07 80 17 145/86 99 08/08/22 07:52 78 180/93 Intake and Output 08/08/22 08/09/22 08/09/22 22:59 06:59 14:59 Intake Total 1600 485.833 Output Total 1800 2550 1000 Balance -200 -0234.167 -1000 Intake: Intake, IV Titration 500 485.833 Amount Magnesium Sulfate-Water 500 485.833 Pmx 20 gm In Water For Injection 1 500ml.bag @ 2 GM/HR 50 mls/hr IV .Q10H GERMÁN Rx#:[id number] Oral 1100 Output: Urine 1800 2550 1000 Other: # Voids 1 0 1 - Labs Labs: Abnormal Lab Results - Last 24 Hours (Table) 08/09/22 Range/Units 06:24 WBC 13.7 H (3.8-10.6) k/uL Neutrophils # 10.0 H (1.3-7.7) k/uL
[2022-08-09] MEDS: SERTRALINE 100 MG TAB PO SCH (21:42)
[2022-08-09] MEDS: PRENATAL VIT-IRON-FOLIC ACID 1 EACH TABLET PO SCH (21:43)
[2022-08-10] MEDS: SENNOSIDES-DOCUSATE SODIUM 1 EACH TAB PO SCH (08:05)
[2022-08-10] MEDS: IBUPROFEN 600 MG TAB PO PRN (08:08)
--- NOTE | 2022-08-10 09:26 | P.PNOBGVD ---
Subjective - Subjective Principal diagnosis: Interval history: 26 y/o day #[address] [facility] for IUGR with elevated dopplers 1. Patient meeting all milestones. Eating, drinking, voiding, passing flatus appropriately. Minimal lochia, less than menses. Pain well controlled. 2. Preeclampsia with severe features - ds/p 24 hours of Mag Sulfate . VSS overnight normotensive to mild-range with highest BP 158/104. Had a moment just after waking up of double vision that quickly resolved, patient attributes this to having just woken up. Denies CONTRERAS, CP/SOB, RUQ pain. Will start 30mg of Procardia XL, plan for patient to go home on this medication. 3. PP contraception - pt not interested in hormonal contraception at this time. Counseled that an interpregnancy interval of 12-18 months is recommended in between deliveries to avoid complications such as delivery and low weight. 4. Viable female infant in nursery, doing well. Pt is formula-feeding. Dispo: Discharge home if 2 BPs <150/90 today. Home with Procardia XL 30mg qDay. Follow up in the office for BP check in 1 week. Objective - Latest Vital Signs Latest vital signs: Vital Signs Temp Pulse Resp BP Pulse Ox 08/10/22 07:59 98.3 F 76 18 99 08/10/22 04:00 98.1 F 84 16 153/93 84 L 08/10/22 00:00 98.1 F 69 16 129/86 97 08/09/22 20:00 98.2 F 84 16 147/93 98 08/09/22 16:24 97.9 F 76 18 140/86 100 08/09/22 16:15 158/86 08/09/22 15:30 97.9 F 88 16 136/77 08/09/22 11:04 96.4 F L 70 18 137/87 98 Intake and Output 08/09/22 08/10/22 08/10/22 22:59 06:59 14:59 Other: Voiding Method Toilet # Voids 0 1 1
[2022-08-10] MEDS ORDERED: NIFEdipine XL 30 MG TAB.ER.24 PO SCH (09:30)
[2022-08-10 13:08] VITALS: RESP 16
[2022-08-10 18:06] VITALS: BP 148/90; PULSE 90; TEMP 97.9
== END 2022-08-10 18:10 | disposition home or self-care (01) | DRG 806 ==
LOC: 4FBP 17:13
PROVIDERS: ADMIT Obstetrics & Gynecology; ATTEND Obstetrics & Gynecology
PROC: 4A0HXCZ Measurement of Products of Conception, Cardiac Rate, External Approach (ICD-10-PCS; principal; 2022-08-08)
PROC: 0U7C7ZZ Dilation of Cervix, Via Natural or Artificial Opening (ICD-10-PCS; principal; 2022-08-08)
PROC: 10E0XZZ Delivery of Products of Conception, External Approach (ICD-10-PCS; principal; 2022-08-08)
DX: O14.14 Severe pre-eclampsia complicating childbirth (principal); O99.354 Diseases of the nervous system complicating childbirth; Z37.0 Single live birth; O36.5930 Maternal care for other known or suspected poor fetal growth, third trimester, not applicable or unspecified; O60.14X0 Preterm labor third trimester with preterm delivery third trimester, not applicable or unspecified; F32.A Depression, unspecified; F41.9 Anxiety disorder, unspecified; O99.344 Other mental disorders complicating childbirth; O99.62 Diseases of the digestive system complicating childbirth; G43.909 Migraine, unspecified, not intractable, without status migrainosus; O99.214 Obesity complicating childbirth; E66.9 Obesity, unspecified; K58.9 Irritable bowel syndrome, unspecified; Z3A.36 36 weeks gestation of pregnancy; Z79.899 Other long term (current) drug therapy; Z87.59 Personal history of other complications of pregnancy, childbirth and the puerperium
CPT/HCPCS: 81001; 82565; 82570; 83615; 84156; 84450; 84460; 84520; 84550; 85025; 85610; 85730; 86850; 86900; 86901